=== PATIENT | male | born 1985 | race African-American/Black ===

== ENCOUNTER 2018-08-10 21:05 | Emergency (ER) | payer SELFPAY ==
[~2018-08-10] VITALS: Ht 175.3 cm; Wt 72.1 kg
[~2018-08-10 21:05] MED LIST: CLIN300C10 PO; IBUP800T48 PO
[2018-08-10 21:27] VITALS: BP 137/85; PULSE 70; RESP 19; Ht 175.3 cm; Wt 72.1 kg
[2018-08-10] MEDS ORDERED: IBUPROFEN 800 MG TAB PO ONE (23:30)
[2018-08-11] MEDS ORDERED: IBUP800T48 PO (00:57)
[2018-08-11] MEDS ORDERED: CYCL10TA7 PO (00:57)
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
== END 2018-08-11 01:18 | disposition home or self-care (01) ==
LOC: FTE 21:05
DX: M25.532 Pain in left wrist (principal); M54.5 Low back pain; F17.210 Nicotine dependence, cigarettes, uncomplicated
CPT/HCPCS: 72100; 99283